=== PATIENT | female | born 1965 | race Caucasian/White ===

== ENCOUNTER 2019-09-18 17:33 | Day surgery (SDC) | payer BC ==
[2019-09-18] MEDS ORDERED: Ondansetron 4 MG/2 ML SDV IVPUSH ONE (19:15)
[2019-09-18] MEDS ORDERED: HYDROmorphone 1 MG/ML Syringe IVPUSH STA (19:15)
[2019-09-18] MEDS ORDERED: Sodium Chloride 0.9% 1,000 ML IV SCH (19:15)
[2019-09-18] MEDS: Sodium Chloride 0.9% 10 ML Syringe FLUSH PRN ×2 (19:48→21:30)
[2019-09-18] MEDS ORDERED: Diatrizoate Meglumine/Diatrizoate Sodium 37% 120 ML Bottle PO ONE (20:12)
[2019-09-18] MEDS ORDERED: Iopamidol 612 MG/ML 100 ML Bottle IVPUSH ONE (20:12)
--- NOTE | 2019-09-18 20:56 | EDM.PDOC ---
ED HPI GENERAL MEDICAL PROBLEM - General Chief Complaint: Abdominal Pain Stated Complaint: R SIDE ABDOMINAL PAIN Time Seen by Provider: 09/18/19 18:30 Source of Information: Reports: Patient, RN Notes Reviewed History Limitations: Reports: No Limitations - History of Present Illness INITIAL COMMENTS - FREE TEXT/NARRATIVE: Patient is a 53-year-old female who presents to the ED for the evaluation of right-sided abdominal pain. Patient states that she developed this abdominal pain yesterday, and this has worsened since then. She initially thought it was constipation, she states her last BM was on Tuesday that she can remember. She states that the pain is constant and does not wax and wane. She states that any sort of bump or movement she makes aggravates the pain worse. She notes that she has to lay fairly still, and not move in order for the pain to go away. She did start taking MiraLAX yesterday, as she thought this could be constipation. She notes that she used a heat pad to the area as this also helps. She states she was having some mild nausea with this. She does not know if she's had any fevers or chills, but states she does have hot and cold flashes. She also states that she is perimenopausal, so she was not sure if this was related to that. She notes that she is still able to pass gas. She denies any dysuria, urinary frequency or urgency. She states she's not had previous abdominal surgeries. She has had a tubal ligation. Her primary care provider is Emily Truong at the [facility]. She does note that she has had a colonoscopy, and this has been normal. She notes that she is not having any chest pain, and she does have some mild shortness of breath with the pain flares. 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 - Past Surgical History HEENT Surgical History: Reports: Tonsillectomy Female Surgical History: Reports: Hysterectomy, Tubal Ligation Neurological Surgical History: Reports: Other (See Below) Other Neurological Surgeries/Procedures: diskectomy Dermatological Surgical History: Reports: Other (See Below) Social & Family History - Family History Family Medical History: Noncontributory - Tobacco Use Smoking Status *Q: Never Smoker Second Hand Smoke Exposure: No - Caffeine Use Caffeine Use: Reports: Coffee, Energy Drinks - Recreational Drug Use Recreational Drug Use: No ED ROS GENERAL - Review of Systems Review Of Systems: See Below Constitutional: Denies: Fever, Chills HEENT: Reports: No Symptoms Respiratory: Reports: Shortness of Breath (with pain flares) Cardiovascular: Denies: Chest Pain Endocrine: Reports: No Symptoms GI/Abdominal: Reports: Abdominal Pain (Right sided), Nausea. Denies: Constipation, Diarrhea, Vomiting : Denies: Dysuria, Frequency, Urgency Musculoskeletal: Reports: No Symptoms Skin: Reports: No Symptoms Neurological: Reports: No Symptoms Psychiatric: Reports: No Symptoms ED EXAM, GI/ABD - Physical Exam Exam: See Below Exam Limited By: No Limitations General Appearance: Alert, WD/WN, No Apparent Distress (pt appears to be in pain.) Eyes: Bilateral: Normal Appearance Throat/Mouth: Normal Inspection, Normal Lips, Normal Teeth, Normal Gums, Normal Oropharynx, Normal Voice, No Airway Compromise Head: Atraumatic, Normocephalic Respiratory/Chest: No Respiratory Distress, Lungs Clear, Normal Breath Sounds, No Accessory Muscle Use, Chest Non-Tender Cardiovascular: Normal Peripheral Pulses, Regular Rate, Rhythm, No Murmur GI/Abdominal Exam: Normal Bowel Sounds, Soft, No Distention, No Mass, Guarding, Tender (RLQ mainly, but entire abdomen is tender). No: Rigid Extremities: Normal Inspection, Normal Capillary Refill Neurological: Alert, Oriented, Normal Cognition, No Motor/Sensory Deficits Psychiatric: Normal Affect, Normal Mood Skin Exam: Warm, Dry, Intact, Normal Color, No Rash EKG INTERPRETATION EKG Date: 09/18/19 Time: 10:11 Rhythm: NSR Rate (Beats/Min): 95 [place]: Normal P-Wave: Present QRS: Normal ST-T: Normal QT: Normal Comparison: NA - No Prior EKG EKG Interpretation Comments: Reviewed by Dr. Oro and myself. Course - Vital Signs Last Recorded V/S: Last Vital Signs Temp 97.2 F 09/18/19 17:40 Pulse 102 H 09/18/19 17:40 Resp 15 09/18/19 17:40 BP 152/98 H 09/18/19 17:40 Pulse Ox 99 09/18/19 17:40 - Orders/Labs/Meds Orders: Active Orders 24 hr Category Date Time Status Admission Status [Patient Status] [ADT] Routine ADT 09/18/19 21:51 Active EKG Documentation Completion [RC] STAT Care 09/18/19 21:59 Active Notify Provider Consults [RC] ASDIRECTED Care 09/18/19 21:49 Active Peripheral IV Care [RC] . DIRECTED Care 09/18/19 19:16 Active Consult to Physician [CONS] Urgent Cons 09/18/19 21:49 Active Abdomen Pelvis w Cont [CT] Stat Exams 09/18/19 19:16 Taken Sodium Chloride 0.9% [Normal Saline] 1,000 ml Med 09/18/19 19:15 Active IV ASDIRECTED Sodium Chloride 0.9% [Saline Flush] Med 09/18/19 19:16 Active 10 ml FLUSH ASDIRECTED PRN Peripheral IV Insertion Adult [OM.PC] Routine Oth 09/18/19 19:16 Ordered Schedule Procedure [COMM] Stat Oth 09/18/19 21:52 Ordered Medication Orders Sodium Chloride (Normal Saline) 1,000 mls @ 999 mls/hr IV ASDIRECTED MARQUES Last Admin: 09/18/19 19:49 Dose: 999 mls/hr Sodium Chloride (Saline Flush) 10 ml FLUSH ASDIRECTED PRN PRN Reason: Keep Vein Open Last Admin: 09/18/19 21:30 Dose: 10 ml Admin: 09/18/19 19:48 Dose: 10 ml Labs: Laboratory Tests 09/18/19 09/18/19 09/18/19 Range/Units 19:32 19:32 21:08 WBC 20.51 H (3.98-10.04) K/mm3 RBC 4.43 (3.98-5.22) M/mm3 Hgb 14.1 (11.2-15.7) gm/dl Hct 42.6 (34.1-44.9) % MCV 96.2 H (79.4-94.8) fl MCH 31.8 (25.6-32.2) pg MCHC 33.1 (32.2-35.5) g/dl RDW Std Deviation 44.4 (36.4-46.3) fL Plt Count 255 (182-369) K/mm3 MPV 9.1 L (9.4-12.3) fl Neutrophils % (Manual) 86 H (40-60) % Band Neutrophils % 0 (0-10) % Lymphocytes % (Manual) 8 L (20-40) % Atypical Lymphs % 0 % Monocytes % (Manual) 6 (2-10) % Eosinophils % (Manual) 0 L (0.7-5.8) % Basophils % (Manual) 0 L (0.1-1.2) Platelet Estimate Adequate RBC Morph Comment Normal Sodium 138 (136-145) mEq/L Potassium 3.7 (3.5-5.1) mEq/L Chloride 100 (98-107) mEq/L Carbon Dioxide 28 (21-32) mEq/L Anion Gap 13.7 (5-15) BUN 10 (7-18) mg/dL Creatinine 0.7 (0.55-1.02) mg/dL Est Cr Clr Drug Dosing 92.68 mL/min Estimated GFR (MDRD) > 60 (>60) mL/min BUN/Creatinine Ratio 14.3 (14-18) Glucose 107 H (74-106) mg/dL Calcium 9.0 (8.5-10.1) mg/dL Total Bilirubin 0.9 (0.2-1.0) mg/dL AST 29 (15-37) U/L ALT 49 (14-59) U/L Alkaline Phosphatase 73 (46-116) U/L Total Protein 8.0 (6.4-8.2) g/dl Albumin 3.6 (3.4-5.0) g/dl Globulin 4.4 gm/dL Albumin/Globulin Ratio 0.8 L (1-2) Urine Color Yellow (Yellow) Urine Appearance Clear (Clear) Urine pH 6.5 (5.0-8.0) Ur Specific [place] 1.020 (1.005-1.030) Urine Protein Trace H (Negative) Urine Glucose (UA) Negative (Negative) Urine Ketones Trace H (Negative) Urine Occult Blood Negative (Negative) Urine Nitrite Negative (Negative) Urine Bilirubin Negative (Negative) Urine Urobilinogen 0.2 (0.2-1.0) Ur Leukocyte Esterase Negative (Negative) Urine RBC 5-10 H (0-5) /hpf Urine WBC 0-5 (0-5) /hpf Ur Squamous Epith Cells 10-20 H (0-5) /hpf Urine Bacteria Not seen (FEW) /hpf Urine Mucus Not seen (FEW) /hpf Meds: Medications Generic Name Dose Route Start Last Admin Trade Name Freq PRN Reason Stop Dose Admin Sodium Chloride 1,000 mls @ 999 mls/hr 09/18/19 19:15 09/18/19 19:49 Normal Saline IV 999 mls/hr ASDIRECTED MARQUES Administration Sodium Chloride 10 ml 09/18/19 19:16 09/18/19 21:30 Saline Flush FLUSH 10 ml ASDIRECTED PRN Administration Keep Vein Open Discontinued Medications Generic Name Dose Route Start Last Admin Trade Name Freq PRN Reason Stop Dose Admin Bupivacaine HCl/Epinephrine Bitart Confirm 09/18/19 22:26 Marcaine 0.5%/Epinephrine 1:200,000 Administered 09/18/19 22:27 Dose 50 ml .ROUTE .STK-MED ONE Diatrizoate Meglum/Diatrizoate Sod 60 ml 09/18/19 20:12 09/18/19 21:30 Gastrografin 37% PO 09/18/19 20:13 60 ml ONETIME ONE Administration Hydromorphone HCl 1 mg 09/18/19 19:15 09/18/19 19:46 Dilaudid IVPUSH 09/18/19 19:16 1 mg ONETIME STA Administration Piperacillin Sod/Tazobactam 100 mls @ 200 mls/hr 09/18/19 21:45 09/18/19 21: 52 Sod 4.5 gm/ Sodium Chloride IV 09/18/19 22:14 200 mls/hr ONETIME ONE Administration Lactated Ringer's Confirm 09/18/19 21:50 09/18/19 22:29 Ringers, Lactated Administered 09/18/19 21:51 Not Given Dose 1,000 mls @ as directed .ROUTE .STK-MED ONE Ertapenem 1 gm/ Sodium 50 mls @ 100 mls/hr 09/18/19 22:09 09/18/19 22:29 Chloride IV 09/18/19 22:38 Not Given ONETIME ONE Iopamidol 100 ml 09/18/19 20:12 09/18/19 21:30 Isovue-300 (61%) IVPUSH 09/18/19 20:13 100 ml ONETIME ONE Administration Ondansetron HCl 4 mg 09/18/19 19:15 09/18/19 19:41 Zofran IVPUSH 09/18/19 19:16 4 mg ONETIME ONE Administration - Re-Assessments/Exams Free Text/Narrative Re-Assessment/Exam: 09/18/19 19:20 Patient presents to the ED for evaluation of abdominal pain. I did order CBC, CMP, urinalysis, abdominal pelvis CT with contrast, 1 mg IV Dilaudid, and 4 mg IV Zofran with some IV fluids for initial management. 09/18/19 20:58 Labs are done, urinalysis is still pending. CBC is increased at 20.51, with 86 % neutrophils and no bands. Which would suggest a left shift. Metabolic panel was within normal limits. 09/18/19 21:50 CT is done, and the tech did show venous scans, and stated that she does have appendicitis, however official radiology read is pending. [facility] will be providing official radiology read. I did call Dr. Glass, general surgeon on- call, he requested IV Zosyn be given to the patient, patient's last meal was yesterday, and she states that she is only been taking small sips of water for her pills throughout the day, the most amount of liquid she's had today was the contrast for the CT just done. Patient was having a little bit of pain again at re-exam, but I discussed with her the possibility of waiting until the surgeon examined her, and she is okay with this. UA is still pending. 09/18/19 21:57 V-rad demonstrate an appendix diameter of 20 mm with a large amount of surrounding inflammation, but no perforation, or abscess noted. 09/18/19 22:01 I did go ahead and order a preop chest x-ray, and an EKG. 09/18/19 22:45 As the ER was fairly busy, and the x-ray tech did not see the order for the chest x-ray, so this was not done at this time. This should not be detrimental to the health with the patient, or her care plan. I did cancel the order. Departure - Departure Time of Disposition: 21:53 Disposition: DC/Tfer to [facility] Condition: Fair Clinical Impression: Appendicitis Qualifiers: Appendicitis type: acute appendicitis Acute appendicitis type: with localized peritonitis Appendicitis gangrene presence: without gangrene Appendicitis perforation presence: without perforation Appendicitis abscess presence: without abscess Qualified Code(s): K35.30 - Acute appendicitis with localized peritonitis, without perforation or gangrene - Discharge Information - My Orders Last 24 Hours: My Active Orders 09/18/19 19:15 Sodium Chloride 0.9% [Normal Saline] 1,000 ml IV ASDIRECTED 09/18/19 19:16 Peripheral IV Care [RC] . DIRECTED Abdomen Pelvis w Cont [CT] Stat Sodium Chloride 0.9% [Saline Flush] 10 ml FLUSH ASDIRECTED PRN Peripheral IV Insertion Adult [OM.PC] Routine 09/18/19 21:49 Notify Provider Consults [RC] ASDIRECTED Consult to Physician [CONS] Urgent 09/18/19 21:51 Admission Status [Patient Status] [ADT] Routine 09/18/19 21:52 Schedule Procedure [COMM] Stat 09/18/19 21:59 EKG Documentation Completion [RC] STAT - Assessment/Plan Last 24 Hours: My Active Orders 09/18/19 19:15 Sodium Chloride 0.9% [Normal Saline] 1,000 ml IV ASDIRECTED 09/18/19 19:16 Peripheral IV Care [RC] . DIRECTED Abdomen Pelvis w Cont [CT] Stat Sodium Chloride 0.9% [Saline Flush] 10 ml FLUSH ASDIRECTED PRN Peripheral IV Insertion Adult [OM.PC] Routine 09/18/19 21:49 Notify Provider Consults [RC] ASDIRECTED Consult to Physician [CONS] Urgent 09/18/19 21:51 Admission Status [Patient Status] [ADT] Routine 09/18/19 21:52 Schedule Procedure [COMM] Stat 09/18/19 21:59 EKG Documentation Completion [RC] STAT
[2019-09-18] MEDS ORDERED: Piperacillin/Tazobactam 4.5 GM in Sodium Chloride 0.9% 100 ML IV ONE (21:45)
[2019-09-18] MEDS ORDERED: Lactated Ringers 1,000 ML ONE ×2 (21:50→22:59)
[2019-09-18] MEDS ORDERED: Ertapenem 1 GM in Sodium Chloride 0.9% 50 ML IV ONE (22:09)
--- NOTE | 2019-09-18 22:13 | PCM.HP.2 ---
H&P History of Present Illness - General Date of Service: 09/18/19 Admit Problem/Dx: Admission Diagnosis/Problem Admission Diagnosis/Problem Appendicitis Source of Information: Patient History Limitations: Reports: No Limitations - History of Present Illness Onset of Symptoms: Reports: Sudden Symptom Onset Date: 09/17/19 Duration of Symptoms: Reports: Hour(s):, Getting Worse Location: Reports: Abdomen Quality: Reports: Ache, Stabbing Severity: Severe Improves with: Reports: None Worsens with: Reports: Movement Context: Reports: Other Associated Symptoms: Reports: No Other Symptoms Other HPI/Comments: 53 yo woman presents with roughly 36 hrs of abdominal pain that began suddenly. The pain was periumbilical at first but she notes severe RLQ pain with movement. She has never had pain like this before. She denies vomiting or fever. She did not have a bowel movement today. Her WBC in the ER is 20,000, with CT scan showing inflamed appendix. 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 - Past Surgical History HEENT Surgical History: Reports: Tonsillectomy Female Surgical History: Reports: Hysterectomy, Tubal Ligation Neurological Surgical History: Reports: Other (See Below) Other Neurological Surgeries/Procedures: diskectomy Dermatological Surgical History: Reports: Other (See Below) Social & Family History - Family History Family Medical History: Noncontributory - Tobacco Use Smoking Status *Q: Never Smoker Second Hand Smoke Exposure: No - Caffeine Use Caffeine Use: Reports: Coffee, Energy Drinks - Recreational Drug Use Recreational Drug Use: No H&P Review of Systems - Review of Systems: Review Of Systems: See Below General: Reports: Malaise HEENT: Reports: No Symptoms Pulmonary: Reports: No Symptoms Cardiovascular: Reports: No Symptoms Gastrointestinal: Reports: Abdominal Pain, Anorexia Genitourinary: Reports: No Symptoms Musculoskeletal: Reports: No Symptoms Skin: Reports: No Symptoms Psychiatric: Reports: No Symptoms Neurological: Reports: No Symptoms Hematologic/Lymphatic: Reports: No Symptoms Immunologic: Reports: No Symptoms Exam - Exam Exam: See Below - Vital Signs Vital Signs: Last Vital Signs Temp 36.2 C 09/18/19 17:40 Pulse 102 H 09/18/19 17:40 Resp 15 09/18/19 17:40 BP 152/98 H 09/18/19 17:40 Pulse Ox 99 09/18/19 17:40 Weight: 90.718 kg - Exam General: Alert, Oriented, Mild Distress HEENT: Conjunctiva Clear Neck: Supple Lungs: Clear to Auscultation Cardiovascular: Regular Rate GI/Abdominal Exam: Tender (Female) Exam: Deferred Rectal (Female) Exam: Deferred Back Exam: Normal Inspection Extremities: Normal Inspection Peripheral Pulses: 2+: Radial (L), Radial (R) Skin: Warm, Dry Neurological: Normal Speech, Sensation Intact Neuro Extensive - Mental Status: Alert, Oriented x3 Psychiatric: Normal Affect (right lower quadrant tenderness without rebound, guarding, or rigidity. No palpable mass. ) - Patient Data Lab Results Last 24 hrs: Laboratory Results - last 24 hr 09/18/19 09/18/19 09/18/19 Range/Units 19:32 19:32 21:08 WBC 20.51 H (3.98-10.04) K/mm3 RBC 4.43 (3.98-5.22) M/mm3 Hgb 14.1 (11.2-15.7) gm/dl Hct 42.6 (34.1-44.9) % MCV 96.2 H (79.4-94.8) fl MCH 31.8 (25.6-32.2) pg MCHC 33.1 (32.2-35.5) g/dl RDW Std Deviation 44.4 (36.4-46.3) fL Plt Count 255 (182-369) K/mm3 MPV 9.1 L (9.4-12.3) fl Neutrophils % (Manual) 86 H (40-60) % Band Neutrophils % 0 (0-10) % Lymphocytes % (Manual) 8 L (20-40) % Atypical Lymphs % 0 % Monocytes % (Manual) 6 (2-10) % Eosinophils % (Manual) 0 L (0.7-5.8) % Basophils % (Manual) 0 L (0.1-1.2) Platelet Estimate Adequate RBC Morph Comment Normal Sodium 138 (136-145) mEq/L Potassium 3.7 (3.5-5.1) mEq/L Chloride 100 (98-107) mEq/L Carbon Dioxide 28 (21-32) mEq/L Anion Gap 13.7 (5-15) BUN 10 (7-18) mg/dL Creatinine 0.7 (0.55-1.02) mg/dL Est Cr Clr Drug Dosing 92.68 mL/min Estimated GFR (MDRD) > 60 (>60) mL/min BUN/Creatinine Ratio 14.3 (14-18) Glucose 107 H (74-106) mg/dL Calcium 9.0 (8.5-10.1) mg/dL Total Bilirubin 0.9 (0.2-1.0) mg/dL AST 29 (15-37) U/L ALT 49 (14-59) U/L Alkaline Phosphatase 73 (46-116) U/L Total Protein 8.0 (6.4-8.2) g/dl Albumin 3.6 (3.4-5.0) g/dl Globulin 4.4 gm/dL Albumin/Globulin Ratio 0.8 L (1-2) Urine Color Yellow (Yellow) Urine Appearance Clear (Clear) Urine pH 6.5 (5.0-8.0) Ur Specific [place] 1.020 (1.005-1.030) Urine Protein Trace H (Negative) Urine Glucose (UA) Negative (Negative) Urine Ketones Trace H (Negative) Urine Occult Blood Negative (Negative) Urine Nitrite Negative (Negative) Urine Bilirubin Negative (Negative) Urine Urobilinogen 0.2 (0.2-1.0) Ur Leukocyte Esterase Negative (Negative) Urine RBC 5-10 H (0-5) /hpf Urine WBC 0-5 (0-5) /hpf Ur Squamous Epith Cells 10-20 H (0-5) /hpf Urine Bacteria Not seen (FEW) /hpf Urine Mucus Not seen (FEW) /hpf Result Diagrams: 09/18/19 19:32 09/18/19 19:32 *Q Meaningful Use (ADM) - VTE Risk Assess *Q Each Risk Factor Represents 1 Point: Age 41 - 59 years Total Score 1 Point Risk Factors: 1 Each Risk Factor Represents 2 Points: Laparoscopic surgery greater than 45 minutes Total Score 2 Point Risk Factors: 2 Problem List Initiated/Reviewed/Updated: Yes Orders Last 24hrs: Active Orders 24 hr Category Date Time Status Admission Status [Patient Status] [ADT] Routine ADT 09/18/19 21:51 Active EKG Documentation Completion [RC] STAT Care 09/18/19 21:59 Active Notify Provider Consults [RC] ASDIRECTED Care 09/18/19 21:49 Active Peripheral IV Care [RC] . DIRECTED Care 09/18/19 19:16 Active Consult to Physician [CONS] Urgent Cons 09/18/19 21:49 Active Abdomen Pelvis w Cont [CT] Stat Exams 09/18/19 19:16 Taken Chest 1V Frontal [CR] Stat Exams 09/18/19 21:59 Ordered Piperacillin/Tazobactam [Piperacil-Tazobact] 4.5 gm Med 09/18/19 21:45 Active Sodium Chloride 0.9% [Normal Saline] 100 ml IV ONETIME Sodium Chloride 0.9% [Normal Saline] 1,000 ml Med 09/18/19 19:15 Active IV ASDIRECTED Sodium Chloride 0.9% [Saline Flush] Med 09/18/19 19:16 Active 10 ml FLUSH ASDIRECTED PRN Peripheral IV Insertion Adult [OM.PC] Routine Oth 09/18/19 19:16 Ordered Schedule Procedure [COMM] Stat Oth 09/18/19 21:52 Ordered Medication Orders Sodium Chloride (Normal Saline) 1,000 mls @ 999 mls/hr IV ASDIRECTED [facility] Last Admin: 09/18/19 19:49 Dose: 999 mls/hr Piperacillin Sod/Tazobactam (Sod 4.5 gm/ Sodium Chloride) 100 mls @ 200 mls/hr IV ONETIME ONE Stop: 09/18/19 22:14 Last Admin: 09/18/19 21:52 Dose: 200 mls/hr Sodium Chloride (Saline Flush) 10 ml FLUSH ASDIRECTED PRN PRN Reason: Keep Vein Open Last Admin: 09/18/19 21:30 Dose: 10 ml Admin: 09/18/19 19:48 Dose: 10 ml Assessment/Plan Comment:: Acute appendicitis, plan for laparoscopic appendectomy and anticipate discharge to home after breakfast tomorrow. - Mortality Measure Prognosis:: Good
[2019-09-18] MEDS ORDERED: Bupivacaine 0.5%/EPINEPHrine 1:200,000 50 ML MDV ONE (22:26)
--- NOTE | 2019-09-18 22:28 | PCM.PREANE ---
Preanesthetic Assessment - Anesthesia/Transfusion/Family Hx Anesthesia History: Prior Anesthesia Without Reaction Family History of Anesthesia Reaction: No Transfusion History: No Prior Transfusion(s) Intubation History: Unknown - Review of Systems General: No Symptoms, Fatigue, Chills Pulmonary: No Symptoms (ETOH: rarely) Cardiovascular: No Symptoms Gastrointestinal: No Symptoms, Constipation, Decreased Appetite Neurological: No Symptoms (History of three lower back surgeries), Numbness ( left arm C3-C7 bulging disks awaiting neck surgery) Other: Reports: None, Easy Bruising, Neck Pain - Physical Assessment NPO Status Date: 09/18/19 NPO Status Time: 21:30 (oral contrast) Vital Signs: Last Vital Signs Temp 36.2 C 09/18/19 17:40 Pulse 102 H 09/18/19 17:40 Resp 15 09/18/19 17:40 BP 152/98 H 09/18/19 17:40 Pulse Ox 99 09/18/19 17:40 Height: 1.73 m Weight: 90.718 kg ASA Class: 2E Mental Status: Alert & Oriented x3 Airway Class: Mallampati = 2 Dentition: Reports: Normal Dentition, Caries Thyro-Mental Finger Breadths: 3 Mouth Opening Finger Breadths: 3 ROM/Head Extension: Full Lungs: Clear to Auscultation, Normal Respiratory Effort Cardiovascular: Regular Rate, Regular Rhythm, No Murmurs - Lab Values: Laboratory Last Values WBC 20.51 K/mm3 (3.98-10.04) H 09/18/19 19:32 RBC 4.43 M/mm3 (3.98-5.22) 09/18/19 19:32 Hgb 14.1 gm/dl (11.2-15.7) 09/18/19 19:32 Hct 42.6 % (34.1-44.9) 09/18/19 19:32 MCV 96.2 fl (79.4-94.8) H 09/18/19 19:32 MCH 31.8 pg (25.6-32.2) 09/18/19 19:32 MCHC 33.1 g/dl (32.2-35.5) 09/18/19 19:32 RDW Std Deviation 44.4 fL (36.4-46.3) 09/18/19 19:32 Plt Count 255 K/mm3 (182-369) 09/18/19 19:32 MPV 9.1 fl (9.4-12.3) L 09/18/19 19:32 Neutrophils % (Manual) 86 % (40-60) H 09/18/19 19:32 Band Neutrophils % 0 % (0-10) 09/18/19 19:32 Lymphocytes % (Manual) 8 % (20-40) L 09/18/19 19:32 Atypical Lymphs % 0 % 09/18/19 19:32 Monocytes % (Manual) 6 % (2-10) 09/18/19 19:32 Eosinophils % (Manual) 0 % (0.7-5.8) L 09/18/19 19:32 Basophils % (Manual) 0 (0.1-1.2) L 09/18/19 19:32 Platelet Estimate Adequate 09/18/19 19:32 RBC Morph Comment Normal 09/18/19 19:32 Sodium 138 mEq/L (136-145) 09/18/19 19:32 Potassium 3.7 mEq/L (3.5-5.1) 09/18/19 19:32 Chloride 100 mEq/L (98-107) 09/18/19 19:32 Carbon Dioxide 28 mEq/L (21-32) 09/18/19 19:32 Anion Gap 13.7 (5-15) 09/18/19 19:32 BUN 10 mg/dL (7-18) 09/18/19 19:32 Creatinine 0.7 mg/dL (0.55-1.02) 09/18/19 19:32 Est Cr Clr Drug Dosing 92.68 mL/min 09/18/19 19:32 Estimated GFR (MDRD) > 60 mL/min (>60) 09/18/19 19:32 BUN/Creatinine Ratio 14.3 (14-18) 09/18/19 19:32 Glucose 107 mg/dL (74-106) H 09/18/19 19:32 Calcium 9.0 mg/dL (8.5-10.1) 09/18/19 19:32 Total Bilirubin 0.9 mg/dL (0.2-1.0) 09/18/19 19:32 AST 29 U/L (15-37) 09/18/19 19:32 ALT 49 U/L (14-59) 09/18/19 19:32 Alkaline Phosphatase 73 U/L (46-116) 09/18/19 19:32 Total Protein 8.0 g/dl (6.4-8.2) 09/18/19 19:32 Albumin 3.6 g/dl (3.4-5.0) 09/18/19 19:32 Globulin 4.4 gm/dL 09/18/19 19:32 Albumin/Globulin Ratio 0.8 (1-2) L 09/18/19 19:32 Urine Color Yellow (Yellow) 09/18/19 21:08 Urine Appearance Clear (Clear) 09/18/19 21:08 Urine pH 6.5 (5.0-8.0) 09/18/19 21:08 Ur Specific [place] 1.020 (1.005-1.030) 09/18/19 21:08 Urine Protein Trace (Negative) H 09/18/19 21:08 Urine Glucose (UA) Negative (Negative) 09/18/19 21:08 Urine Ketones Trace (Negative) H 09/18/19 21:08 Urine Occult Blood Negative (Negative) 09/18/19 21:08 Urine Nitrite Negative (Negative) 09/18/19 21:08 Urine Bilirubin Negative (Negative) 09/18/19 21:08 Urine Urobilinogen 0.2 (0.2-1.0) 09/18/19 21:08 Ur Leukocyte Esterase Negative (Negative) 09/18/19 21:08 Urine RBC 5-10 /hpf (0-5) H 09/18/19 21:08 Urine WBC 0-5 /hpf (0-5) 09/18/19 21:08 Ur Squamous Epith Cells 10-20 /hpf (0-5) H 09/18/19 21:08 Urine Bacteria Not seen /hpf (FEW) 09/18/19 21:08 Urine Mucus Not seen /hpf (FEW) 09/18/19 21:08 Above labs reviewed and noted and within acceptable ranges to proceed with scheduled procedure. 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: , Other (See Below) Other OB/BYN History: hot flashes - Past Surgical History HEENT Surgical History: Reports: Tonsillectomy Female Surgical History: Reports: Hysterectomy, Tubal Ligation Neurological Surgical History: Reports: Other (See Below) Other Neurological Surgeries/Procedures: diskectomy Dermatological Surgical History: Reports: Other (See Below) - SUBSTANCE USE Smoking Status *Q: Never Smoker Second Hand Smoke Exposure: No Recreational Drug Use History: No - HOME MEDS Home Medications: Home Meds Venlafaxine [Effexor XR] 37.5 mg PO DAILY 09/18/19 [History] buPROPion [Wellbutrin] 150 mg PO DAILY 09/18/19 [History] - CURRENT (IN HOUSE) MEDS Current Meds: Current Medications Sodium Chloride (Normal Saline) 1,000 mls @ 999 mls/hr IV ASDIRECTED MARQUES Last Admin: 09/18/19 19:49 Dose: 999 mls/hr Ertapenem 1 gm/ Sodium (Chloride) 50 mls @ 100 mls/hr IV ONETIME ONE Stop: 09/18/19 22:38 Sodium Chloride (Saline Flush) 10 ml FLUSH ASDIRECTED PRN PRN Reason: Keep Vein Open Last Admin: 09/18/19 21:30 Dose: 10 ml Discontinued Medications Diatrizoate Meglum/Diatrizoate Sod (Gastrografin 37%) 60 ml PO ONETIME ONE Stop: 09/18/19 20:13 Last Admin: 09/18/19 21:30 Dose: 60 ml Hydromorphone HCl (Dilaudid) 1 mg IVPUSH ONETIME STA Stop: 09/18/19 19:16 Last Admin: 09/18/19 19:46 Dose: 1 mg Piperacillin Sod/Tazobactam (Sod 4.5 gm/ Sodium Chloride) 100 mls @ 200 mls/hr IV ONETIME ONE Stop: 09/18/19 22:14 Last Admin: 09/18/19 21:52 Dose: 200 mls/hr Lactated Ringer's (Ringers, Lactated) Confirm Administered Dose 1,000 mls @ as directed .ROUTE .STK-MED ONE Stop: 09/18/19 21:51 Iopamidol (Isovue-300 (61%)) 100 ml IVPUSH ONETIME ONE Stop: 09/18/19 20:13 Last Admin: 09/18/19 21:30 Dose: 100 ml Ondansetron HCl (Zofran) 4 mg IVPUSH ONETIME ONE Stop: 09/18/19 19:16 Last Admin: 09/18/19 19:41 Dose: 4 mg
[2019-09-18] MEDS ORDERED: HYDROmorphone 0.5 MG/0.5 ML Syringe ONE ×2 (22:59→23:24)
[2019-09-18] MEDS ORDERED: Ketorolac 30 MG/ML SDV ONE (22:59)
[2019-09-18] MEDS ORDERED: Ondansetron 4 MG/2 ML SDV ONE (22:59)
[2019-09-18] MEDS ORDERED: Dexamethasone 4 MG/ML 5 ML MDV ONE (22:59)
[2019-09-18] MEDS ORDERED: Lidocaine 1% 6 ML ONE (22:59)
[2019-09-18] MEDS ORDERED: Succinylcholine/Normal Saline 100 MG/5 ML Syringe ONE (22:59)
[2019-09-18] MEDS ORDERED: Rocuronium 50 MG/5 ML Vial ONE (22:59)
[2019-09-18] MEDS ORDERED: Midazolam 1 MG/ML 2 ML SDV ONE (23:01)
[2019-09-18] MEDS ORDERED: Propofol 200 MG/20 ML SDV ONE (23:01)
[2019-09-18] MEDS ORDERED: fentaNYL 250 MCG/5 ML SDV ONE (23:02)
[2019-09-18] MEDS ORDERED: Phenylephrine/Normal Saline 100 MCG/ML 10 ML Syringe ONE (23:14)
[2019-09-18] MEDS ORDERED: diphenhydrAMINE 50 MG/ML SDV IVPUSH PRN (23:19)
[2019-09-18] MEDS ORDERED: Ondansetron 4 MG/2 ML SDV IVPUSH PRN (23:19)
[2019-09-18] MEDS ORDERED: fentaNYL 100 MCG/2 ML SDV IVPUSH PRN (23:19)
[2019-09-18] MEDS ORDERED: HYDROmorphone 0.5 MG/0.5 ML Syringe IVPUSH PRN (23:19)
[2019-09-18] MEDS ORDERED: ePHEDrine 50 MG/ML SDV IVPUSH PRN (23:19)
[2019-09-18] MEDS ORDERED: Neostigmine Methylsulfate 1 MG/ML 5 ML Syringe ONE (23:27)
[2019-09-18] MEDS ORDERED: Phenylephrine 1 MG in Sodium Chloride 0.9% 10 ML IV SCH (23:30)
[2019-09-18] MEDS ORDERED: oxyCODONE 5 MG Tab PO PRN (23:59)
--- NOTE | 2019-09-19 00:06 | PCM.PRNOTE ---
- Free Text/Narrative Note: Operative Report Operation: laparoscopic appendectomy Date: 09/18/2019 Attending Surgeon: Fransico Glass MD Indication for Surgery:acute appendicitis Preoperative antibiotics: 1 g ertapenem IV VTE prophylaxis: SCDs Estimated Blood Loss: 5 cc Findings: gangrenous, perforated retrocecal appendicitis with thin murky fluid in the pelvis. Detailed Report: The patient underwent general endotracheal anesthesia after being placed supine on the operating table and initial timeout. The abdomen was prepped and draped in sterile fashion. A pre-incision timeout was performed confirming the patient s identity and the operation to be performed. A Veress needle was inserted into the abdominal cavity below the left costal margin along the mid-clavicular line. The abdomen was insufflated with CO2 to 15 mm Hg. Gas was aspirated below the umbilicus with a syringe in order to ensure safe placement of a 12 mm bladed laparoscopic port. The 5mm 30 degree laparoscope was then inserted and viscera inspected. The appendix appeared severely inflamed with area of necrosis and perforation near the base. Two additional 5 mm ports were placed under direct vision with the laparoscope one along the midline superior to the pubic symphysis and one in the left lower quadrant. The laparoscope was then placed through the left lower quadrant port for optimal visualization. Careful blunt dissection was performed with laparoscopic graspers until the appendix was freed from surrounding inflammatory attachments. The appendix was retrocecal , and lateral attachments were dissected in order to expose the appendix. The distal portion of the appendix was grasped with a laparoscopic Yakelin clamp and retracted anteriorly and inferiorly. The appendix was basically transected already near its base before handling. The [place] grasper was used to create a window in the mesoappendix where the appendix was seen coming off the cecum. A 45 mm laparoscopic stapler with white cartridge was used to divide the appendix flush with the base of the cecum. An additional staple fire was used to divide the mesentery supplying the appendix. The specimen was then placed in an Endocatch bag and removed through the umbilical port. The dissection field was irrigated and inspected and appeared hemostatic. The larger infraumbilical port was closed at the level of the fascia with vicryl suture using the PMI laparoscopic suture passer. Pneumoperitoneum was then released. All skin incisions were then closed with placement of subcuticular monocryl suture and dressed with dermabond. A total of 20 cc 0.5% marcaine with epinephrine was used for local anesthesia at the incision sites. The patient tolerated the operation well, was extubated in the operating room and transferred to the PACU for routine post-anesthesia care. Fransico Glass MD General Surgery
--- NOTE | 2019-09-19 00:11 | PCM.POSTAN ---
POST ANESTHESIA ASSESSMENT - MENTAL STATUS Mental Status: Alert, Oriented - VITAL SIGNS Vital Signs: Last Vital Signs Temp 37.6 C 09/19/19 00:00 Pulse 102 H 09/18/19 0000 Resp 17 09/19/19 00:00 BP 138/90 09/19/19 00:00 Pulse Ox 97 09/19/19 00:00 - RESPIRATORY Respiratory Status: Respiratory Rate WNL, Airway Patent, O2 Saturation Stable - CARDIOVASCULAR CV Status: Pulse Rate WNL, Blood Pressure Stable - GASTROINTESTINAL GI Status: No Symptoms - POST OP HYDRATION Hydration Status: Adequate & Stable
[2019-09-19] MEDS: Acetaminophen 325 MG/10.15 ML ML PO SCH ×2 (03:18→07:46)
--- NOTE | 2019-09-19 07:27 | CT ---
CT abdomen and pelvis Technique: Multiple axial sections were obtained from above the dome of the diaphragm inferiorly through the pubic symphysis. Intravenous and oral contrast was utilized. Delayed images were also obtained from above the kidneys inferiorly through the pubic symphysis. Comparison: No prior abdominal imaging is available. Findings: Significant inflammatory change is seen around a dilated appendix. Findings are compatible with appendicitis. Visualized lung bases show nothing acute. Liver shows no focal parenchymal abnormality. Spleen appears within normal limits. Adrenal glands show no nodule. Kidneys show symmetric contrast enhancement. Delayed images show contrast excretion from both kidneys into nondilated ureters. Contrast is noted within the bladder on delayed images. Pancreas appears within normal limits. Aorta shows no aneurysm. No retroperitoneal adenopathy or mesenteric abnormalities are seen. There is free fluid within the pelvis which appears simple and may be reactive from the appendicitis. Bowel loops are slightly prominent most likely due to mild ileus. Bone window settings were reviewed which show scattered degenerative change within the spine. Impression: 1. Findings compatible with appendicitis. 2. Fluid within the pelvis most likely reactive from the appendicitis. 3. Mildly prominent bowel loops most likely representing mild ileus. Diagnostic code #5 I agree with preliminary report from ad, finalized on 09/18/19, 10:53 PM Central Time
--- NOTE | 2019-09-19 10:06 | PCM.DCSUM1 ---
Discharge Summary - Hospital Course Free Text/Narrative:: Admitted from [facility] emergency room last night with perforated appendicitis. Went to OR for laparoscopic appendectomy, completed without complication. She has done well postoperatively, tolerating a diet, ambulating and pain controlled with oral analgesia. Diagnosis: Stroke: No - Discharge Data Discharge Date: 09/19/19 Discharge Disposition: Home, Self-Care 01 Condition: Good - Referral to Home Health Primary Care Physician: Emily Gallegos NP - Patient Summary/Data Operative Procedure(s) Performed: laparoscopic appendectomy Consults: Consultations 09/18/19 21:49 Consult to Physician [CONS] Urgent Hospital Course: admitted from ERwith appendicitis and taken to OR promptly for laparoscopic appendectom. Appendix was perforated. Did well postoperatively and discharged the morning after her operation. - Patient Instructions Diet: Regular Diet as Tolerated Activity: As Tolerated, No Lifting Over 10 Pounds Showering/Bathing: March Shower Wound/Incision Care: Keep Operative Site/Wound Site Clean and Dry Notify Provider of: Fever, Increased Pain, Swelling and Redness, Drainage, Nausea and/or Vomiting - Discharge Plan *PRESCRIPTION DRUG MONITORING PROGRAM REVIEWED*: Not Applicable *COPY OF PRESCRIPTION DRUG MONITORING REPORT IN PATIENT FANY: Not Applicable Prescriptions/Med Rec: oxyCODONE 5 mg PO Q4H PRN #20 tab PRN Reason: Abdominal Pain Home Medications: Home Meds Venlafaxine [Effexor XR] 37.5 mg PO 1500 09/18/19 [History] buPROPion [Wellbutrin] 150 mg PO DAILY 09/18/19 [History] L.acidoph,Paracasei, B.lactis [Probiotic] 1 cap PO 0600 09/19/19 [History] Multivit with Calcium,Iron,Min [One Daily Women's] 2 tab PO 0600 09/19/19 [ History] Venlafaxine [Effexor] 75 mg PO 0600 09/19/19 [History] oxyCODONE 5 mg PO Q4H PRN #20 tab 09/19/19 [Rx] Oxygen Therapy Mode: Room Air Patient Handouts: Laparoscopic Appendectomy, Adult Referrals: Emily Gallegos NP [Primary Care Provider] - Fransico Glass MD [Physician] - - Discharge Summary/Plan Comment DC Time >30 min.: No Discharge Summary/Plan Comment: follow up in 2 weeks in surgery clinic. Call clinic or come to emergency room if signs of infection develop. - Patient Data Vitals - Most Recent: Last Vital Signs Temp 36.4 C 09/19/19 04:04 Pulse 97 09/19/19 04:04 Resp 16 09/19/19 04:04 BP 131/79 09/19/19 04:04 Pulse Ox 93 L 09/19/19 04:04 Weight - Most Recent: 93.168 kg I&O - Last 24 hours: Intake & Output 09/18/19 09/19/19 09/19/19 22:59 06:59 14:59 Intake Total 650 Output Total 900 Balance -250 Lab Results - Last 24 hrs: Laboratory Results - last 24 hr 09/18/19 09/18/19 09/18/19 Range/Units 19:32 19:32 21:08 WBC 20.51 H (3.98-10.04) K/mm3 RBC 4.43 (3.98-5.22) M/mm3 Hgb 14.1 (11.2-15.7) gm/dl Hct 42.6 (34.1-44.9) % MCV 96.2 H (79.4-94.8) fl MCH 31.8 (25.6-32.2) pg MCHC 33.1 (32.2-35.5) g/dl RDW Std Deviation 44.4 (36.4-46.3) fL Plt Count 255 (182-369) K/mm3 MPV 9.1 L (9.4-12.3) fl Neut % (Auto) (34.0-71.1) % Lymph % (Auto) (19.3-51.7) % [place] % (Auto) (4.7-12.5) % Eos % (Auto) (0.7-5.8) Baso % (Auto) (0.1-1.2) % Neut # (Auto) (1.56-6.13) K/mm3 Lymph # (Auto) (1.18-3.74) K/mm3 [place] # (Auto) (0.24-0.36) K/mm3 Eos # (Auto) (0.04-0.36) K/mm3 Baso # (Auto) (0.01-0.08) K/mm3 Neutrophils % (Manual) 86 H (40-60) % Band Neutrophils % 0 (0-10) % Lymphocytes % (Manual) 8 L (20-40) % Atypical Lymphs % 0 % Monocytes % (Manual) 6 (2-10) % Eosinophils % (Manual) 0 L (0.7-5.8) % Basophils % (Manual) 0 L (0.1-1.2) Manual Slide Review Platelet Estimate Adequate RBC Morph Comment Normal Sodium 138 (136-145) mEq/L Potassium 3.7 (3.5-5.1) mEq/L Chloride 100 (98-107) mEq/L Carbon Dioxide 28 (21-32) mEq/L Anion Gap 13.7 (5-15) BUN 10 (7-18) mg/dL Creatinine 0.7 (0.55-1.02) mg/dL Est Cr Clr Drug Dosing 92.68 mL/min Estimated GFR (MDRD) > 60 (>60) mL/min BUN/Creatinine Ratio 14.3 (14-18) Glucose 107 H (74-106) mg/dL Calcium 9.0 (8.5-10.1) mg/dL Total Bilirubin 0.9 (0.2-1.0) mg/dL AST 29 (15-37) U/L ALT 49 (14-59) U/L Alkaline Phosphatase 73 (46-116) U/L Total Protein 8.0 (6.4-8.2) g/dl Albumin 3.6 (3.4-5.0) g/dl Globulin 4.4 gm/dL Albumin/Globulin Ratio 0.8 L (1-2) Urine Color Yellow (Yellow) Urine Appearance Clear (Clear) Urine pH 6.5 (5.0-8.0) Ur Specific [place] 1.020 (1.005-1.030) Urine Protein Trace H (Negative) Urine Glucose (UA) Negative (Negative) Urine Ketones Trace H (Negative) Urine Occult Blood Negative (Negative) Urine Nitrite Negative (Negative) Urine Bilirubin Negative (Negative) Urine Urobilinogen 0.2 (0.2-1.0) Ur Leukocyte Esterase Negative (Negative) Urine RBC 5-10 H (0-5) /hpf Urine WBC 0-5 (0-5) /hpf Ur Squamous Epith Cells 10-20 H (0-5) /hpf Urine Bacteria Not seen (FEW) /hpf Urine Mucus Not seen (FEW) /hpf 09/19/19 09/19/19 Range/Units 07:53 07:53 WBC 18.67 H (3.98-10.04) K/mm3 RBC 3.86 L (3.98-5.22) M/mm3 Hgb 12.4 D (11.2-15.7) gm/dl Hct 37.9 (34.1-44.9) % MCV 98.2 H (79.4-94.8) fl MCH 32.1 (25.6-32.2) pg MCHC 32.7 (32.2-35.5) g/dl RDW Std Deviation 45.3 (36.4-46.3) fL Plt Count 229 (182-369) K/mm3 MPV 9.2 L (9.4-12.3) fl Neut % (Auto) 95.2 H (34.0-71.1) % Lymph % (Auto) 3.2 L (19.3-51.7) % [place] % (Auto) 1.4 L (4.7-12.5) % Eos % (Auto) 0 L (0.7-5.8) Baso % (Auto) 0.0 L (0.1-1.2) % Neut # (Auto) 17.77 H (1.56-6.13) K/mm3 Lymph # (Auto) 0.60 L (1.18-3.74) K/mm3 [place] # (Auto) 0.26 (0.24-0.36) K/mm3 Eos # (Auto) 0.00 L (0.04-0.36) K/mm3 Baso # (Auto) 0.00 L (0.01-0.08) K/mm3 Neutrophils % (Manual) (40-60) % Band Neutrophils % (0-10) % Lymphocytes % (Manual) (20-40) % Atypical Lymphs % % Monocytes % (Manual) (2-10) % Eosinophils % (Manual) (0.7-5.8) % Basophils % (Manual) (0.1-1.2) Manual Slide Review Abnormal smear Platelet Estimate RBC Morph Comment Sodium 138 (136-145) mEq/L Potassium 4.1 (3.5-5.1) mEq/L Chloride 102 (98-107) mEq/L Carbon Dioxide 27 (21-32) mEq/L Anion Gap 13.1 (5-15) BUN 9 (7-18) mg/dL Creatinine 0.8 (0.55-1.02) mg/dL Est Cr Clr Drug Dosing 81.10 mL/min Estimated GFR (MDRD) > 60 (>60) mL/min BUN/Creatinine Ratio 11.3 L (14-18) Glucose 135 H (74-106) mg/dL Calcium 8.5 (8.5-10.1) mg/dL Total Bilirubin (0.2-1.0) mg/dL AST (15-37) U/L ALT (14-59) U/L Alkaline Phosphatase (46-116) U/L Total Protein (6.4-8.2) g/dl Albumin (3.4-5.0) g/dl Globulin gm/dL Albumin/Globulin Ratio (1-2) Urine Color (Yellow) Urine Appearance (Clear) Urine pH (5.0-8.0) Ur Specific [place] (1.005-1.030) Urine Protein (Negative) Urine Glucose (UA) (Negative) Urine Ketones (Negative) Urine Occult Blood (Negative) Urine Nitrite (Negative) Urine Bilirubin (Negative) Urine Urobilinogen (0.2-1.0) Ur Leukocyte Esterase (Negative) Urine RBC (0-5) /hpf Urine WBC (0-5) /hpf Ur Squamous Epith Cells (0-5) /hpf Urine Bacteria (FEW) /hpf Urine Mucus (FEW) /hpf Med Orders - Current: Current Medications Acetaminophen (Tylenol) 975 mg PO Q8H [facility] Non-Formulary Medication (Bupropion) 150 mg PO DAILY [facility] Non-Formulary Medication (Venlafaxine) 75 mg PO 0600 [facility] Oxycodone HCl (Oxycodone) 5 mg PO Q4H PRN PRN Reason: Pain (moderate 4-6) Sodium Chloride (Saline Flush) 10 ml FLUSH ASDIRECTED PRN PRN Reason: Keep Vein Open Last Admin: 09/18/19 21:30 Dose: 10 ml Venlafaxine HCl (Effexor Xr) 37.5 mg PO 1500 [facility] Discontinued Medications Acetaminophen (Tylenol) 975 mg PO Q8H [facility] Last Admin: 09/19/19 07:46 Dose: 975 mg Bupivacaine HCl/Epinephrine Bitart (Marcaine 0.5%/Epinephrine 1:200,000) Confirm Administered Dose 50 ml .ROUTE .STK-MED ONE Stop: 09/18/19 22:27 Last Admin: 09/18/19 23:16 Dose: 20 ml Dexamethasone (Dexamethasone) Confirm Administered Dose 20 mg .ROUTE .STK-MED ONE Stop: 09/18/19 23:00 Diatrizoate Meglum/Diatrizoate Sod (Gastrografin 37%) 60 ml PO ONETIME ONE Stop: 09/18/19 20:13 Last Admin: 09/18/19 21:30 Dose: 60 ml Diphenhydramine HCl (Benadryl) 25 mg IVPUSH Q6H PRN PRN Reason: pruritis Ephedrine Sulfate (Ephedrine Sulfate) 5 mg IVPUSH ASDIRECTED PRN PRN Reason: Hypotension Fentanyl (Sublimaze) Confirm Administered Dose 250 mcg .ROUTE .STK-MED ONE Stop: 09/18/19 23:03 Fentanyl (Sublimaze) 50 mcg IVPUSH Q5M PRN PRN Reason: Pain Glycopyrrolate () Confirm Administered Dose 1 mg .ROUTE .STK-MED ONE Stop: 09/18/19 23:28 Hydromorphone HCl (Dilaudid) 1 mg IVPUSH ONETIME STA Stop: 09/18/19 19:16 Last Admin: 09/18/19 19:46 Dose: 1 mg Hydromorphone HCl (Dilaudid) Confirm Administered Dose 0.5 mg .ROUTE .STK-MED ONE Stop: 09/18/19 23:00 Hydromorphone HCl (Dilaudid) 0.5 mg IVPUSH Q15M PRN PRN Reason: Pain (severe 7-10) Hydromorphone HCl (Dilaudid) Confirm Administered Dose 0.5 mg .ROUTE .STK-MED ONE Stop: 09/18/19 23:25 Sodium Chloride (Normal Saline) 1,000 mls @ 999 mls/hr IV ASDIRECTED MARQUES Last Admin: 09/18/19 19:49 Dose: 999 mls/hr Piperacillin Sod/Tazobactam (Sod 4.5 gm/ Sodium Chloride) 100 mls @ 200 mls/hr IV ONETIME ONE Stop: 09/18/19 22:14 Last Admin: 09/18/19 21:52 Dose: 200 mls/hr Lactated Ringer's (Ringers, Lactated) Confirm Administered Dose 1,000 mls @ as directed .ROUTE .STK-MED ONE Stop: 09/18/19 21:51 Last Admin: 09/18/19 22:29 Dose: Not Given Ertapenem 1 gm/ Sodium (Chloride) 50 mls @ 100 mls/hr IV ONETIME ONE Stop: 09/18/19 22:38 Last Admin: 09/18/19 22:29 Dose: Not Given Lidocaine HCl (Xylocaine-Mpf 1%) Confirm Administered Dose 6 mls @ as directed .ROUTE .STK-MED ONE Stop: 09/18/19 23:00 Lactated Ringer's (Ringers, Lactated) Confirm Administered Dose 1,000 mls @ as directed .ROUTE .STK-MED ONE Stop: 09/18/19 23:00 Phenylephrine HCl 1 mg/ Sodium (Chloride) 10.1 mls @ 1 mls/sec IV TITRATE MARQUES; Protocol Iopamidol (Isovue-300 (61%)) 100 ml IVPUSH ONETIME ONE Stop: 09/18/19 20:13 Last Admin: 09/18/19 21:30 Dose: 100 ml Ketorolac Tromethamine (Toradol) Confirm Administered Dose 30 mg .ROUTE .STK- MED ONE Stop: 09/18/19 23:00 Midazolam HCl (Versed 1 Mg/Ml) Confirm Administered Dose 2 mg .ROUTE .STK-MED ONE Stop: 09/18/19 23:02 Neostigmine Methylsulfate (Neostigmine) Confirm Administered Dose 5 mg .ROUTE .STK-MED ONE Stop: 09/18/19 23:28 Ondansetron HCl (Zofran) 4 mg IVPUSH ONETIME ONE Stop: 09/18/19 19:16 Last Admin: 09/18/19 19:41 Dose: 4 mg Ondansetron HCl (Zofran) Confirm Administered Dose 4 mg .ROUTE .STK-MED ONE Stop: 09/18/19 23:00 Ondansetron HCl (Zofran) 4 mg IVPUSH ONETIME PRN PRN Reason: Nausea/Vomiting Phenylephrine HCl (Phenylephrine In Ns 100 Mcg/Ml) Confirm Administered Dose 1 mg .ROUTE .STK-MED ONE Stop: 09/18/19 23:15 Propofol (Diprivan 20 Ml) Confirm Administered Dose 200 mg .ROUTE .STK-MED ONE Stop: 09/18/19 23:02 Rocuronium [place] (Zemuron) Confirm Administered Dose 50 mg .ROUTE .STK-MED ONE Stop: 09/18/19 23:00 Succinylcholine Chloride (Succinylcholine In Ns Pf) Confirm Administered Dose 100 mg .ROUTE .STK-MED ONE Stop: 09/18/19 23:00
[2019-09-19] MEDS ORDERED: Venlafaxine 37.5 MG Cap.ER PO SCH (15:00)
[2019-09-19] MEDS ORDERED: Acetaminophen 325 MG Tab PO SCH (15:45)
[2019-09-20] MEDS ORDERED: Non-Formulary Medication 1 Each (Venlafaxine 75 MG) PO SCH (06:00)
[2019-09-20] MEDS ORDERED: BUPROPION 150 MG PO SCH (09:00)
== END 2019-09-19 11:35 | disposition home or self-care (01) ==
LOC: JD.ED 17:33 → JD.SDS 21:53 → JD.MS 09-19 00:50 → JD.SDS 09-19 00:50 → JD.MS 09-19 02:42 → UNDOADMOB 09-19 02:42 → JD.MS 09-19 02:42 → JD.SDS 09-19 11:35 → JD.MS 09-19 11:35 → UNDODISOB 09-19 11:35
PROVIDERS: ATTEND Surgery
DX: K35.32 Acute appendicitis with perforation, localized peritonitis, and gangrene, without abscess (principal)
CPT/HCPCS: 36415; 44970; 51798; 74177; 80048; 80053; 81001; 85007; 85025; 85027; 93005; 96361; 96365; 96375; 99285; A9270; J0330; J1100; J1170; J2001; J2250; J2370; J2405; J2543; J2704; J2710; J3010; J3490; J7030; J7040; J7120; Q9963; Q9967; 00840; 93010; J1885

== ENCOUNTER 2020-06-18 09:24 | Emergency (ER) | payer BC ==
[2020-06-18] MEDS ORDERED: Sodium Chloride 0.9% 10 ML Syringe FLUSH PRN ×2 (09:41→11:15)
[2020-06-18] MEDS ORDERED: HYDROmorphone 1 MG/ML Syringe IVPUSH ONE (09:43)
--- NOTE | 2020-06-18 09:50 | EDM.PDOC ---
ED HPI GENERAL MEDICAL PROBLEM - General Chief Complaint: Respiratory Problem Stated Complaint: RT SIDE PAIN Time Seen by Provider: 06/18/20 09:33 Source of Information: Reports: Patient History Limitations: Reports: No Limitations - History of Present Illness INITIAL COMMENTS - FREE TEXT/NARRATIVE: The patient presents with RUQ and right sided chest pain. This started yesterd ay and it has gotten worse today. She says taking a deep breath makes it worse. She has never had pain like this before. She has no fever, chills, cough, congestion, runny nose, nausea or vomiting. She has not eaten since yesterday. She still has her gallbladder and she said she has had trouble in the past. She has no history of heart disease, hypertension, hypercholesterolemia or diabetes. She quit smoking in 1991. She has no history of DVT or PE. She has no pain or swelling in her legs. Onset: Gradual Duration: Day(s): (Yesterday) Location: Reports: Chest, Abdomen Quality: Reports: Sharp Severity: Severe Improves with: Reports: Immobilization Worsens with: Reports: Breathing Associated Symptoms: Reports: Chest Pain. Denies: Cough, Fever/Chills, Headaches, Nausea/Vomiting, Shortness of Breath Right Breast Pain Score (Numeric/FACES): 10 - Related Data Allergies Allergy/AdvReac Type Severity Reaction Status Date / Time No Known Allergies Allergy Verified 06/18/20 09:35 Home Meds: Home Meds Venlafaxine [Effexor XR] 0 mg PO 1500 09/18/19 [History] buPROPion [Wellbutrin] 150 mg PO DAILY 09/18/19 [History] L.acidoph,Paracasei, B.lactis [Probiotic] 1 cap PO 0600 09/19/19 [History] Multivit with Calcium,Iron,Min [One Daily Women's] 2 tab PO 0600 09/19/19 [History] Venlafaxine [Effexor] 0 mg PO 0600 09/19/19 [History] oxyCODONE 5 mg PO Q4H PRN #20 tab 09/19/19 [Rx] Hydrocodone/Acetaminophen [Hydrocodone-Acetamin 5-325 mg] 1 - 2 each PO Q6HR PRN #10 tablet 06/18/20 [Rx] Naproxen [Naprosyn] 500 mg PO Q12HR PRN #30 tab 06/18/20 [Rx] 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: , 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 Musculoskeletal Surgical History: Reports: Other (See Below) Other Musculoskeletal Surgeries/Procedures:: Back surgery in ,, 2014. Dissectomy and laminectomy. Cyst removal to left side of neck 2008 Social & Family History - Family History Family Medical History: Noncontributory - Caffeine Use Caffeine Use: Reports: Coffee ED ROS GENERAL - Review of Systems Review Of Systems: See Below Constitutional: Reports: No Symptoms HEENT: Reports: No Symptoms Respiratory: Denies: Shortness of Breath, Cough Cardiovascular: Reports: Chest Pain Endocrine: Reports: No Symptoms GI/Abdominal: Reports: Abdominal Pain. Denies: Nausea, Vomiting : Reports: No Symptoms Musculoskeletal: Reports: No Symptoms ED EXAM, GENERAL - Physical Exam Exam: See Below Exam Limited By: No Limitations General Appearance: Alert, No Apparent Distress Ears: Normal External Exam Nose: Normal Inspection Head: Atraumatic, Normocephalic Neck: Normal Inspection Respiratory/Chest: No Respiratory Distress, Lungs Clear, Normal Breath Sounds Cardiovascular: Regular Rate, Rhythm, No Edema, No Murmur GI/Abdominal: Soft, No Organomegaly, No Mass, Tender (Moderate tenderness to the RUQ) Extremities: Normal Inspection Course - Vital Signs Last Recorded V/S: Last Vital Signs Temp 97.3 F 06/18/20 09:30 Pulse 90 06/18/20 09:30 Resp 18 06/18/20 09:30 BP 153/96 H 06/18/20 09:30 Pulse Ox 98 06/18/20 09:30 - Orders/Labs/Meds Orders: Active Orders 24 hr Category Date Time Status Cardiac Monitoring [RC] . DIRECTED Care 06/18/20 09:42 Active EKG Documentation Completion [RC] STAT Care 06/18/20 09:43 Active Peripheral IV Care [RC] . DIRECTED Care 06/18/20 09:43 Active Sodium Chloride 0.9% [Normal Saline] 45 ml Med 06/18/20 11:15 Active IV ASDIRECTED Sodium Chloride 0.9% [Saline Flush] Med 06/18/20 09:41 Active 10 ml FLUSH ASDIRECTED PRN Sodium Chloride 0.9% [Saline Flush] Med 06/18/20 11:15 Active 10 ml FLUSH ONETIME PRN Peripheral IV Insertion Adult [OM.PC] Stat Oth 06/18/20 09:41 Ordered Medication Orders Sodium Chloride (Normal Saline) 45 mls @ 40 mls/hr IV ASDIRECTED MARQUES Last Admin: 06/18/20 11:29 Dose: 40 mls/hr Documented by: ALYSON Sodium Chloride (Saline Flush) 10 ml FLUSH ASDIRECTED PRN PRN Reason: Keep Vein Open Last Admin: 06/18/20 10:22 Dose: 10 ml Documented by: HAI Sodium Chloride (Saline Flush) 10 ml FLUSH ONETIME PRN PRN Reason: Keep Vein Open Last Admin: 06/18/20 11:28 Dose: 10 ml Documented by: ALYSON Labs: Laboratory Tests 06/18/20 06/18/20 06/18/20 Range/Units 10:30 10:30 10:30 WBC 6.40 (3.98-10.04) K/mm3 RBC 4.42 (3.98-5.22) M/mm3 Hgb 13.6 (11.2-15.7) gm/dl Hct 42.1 (34.1-44.9) % MCV 95.2 H D (79.4-94.8) fl MCH 30.8 (25.6-32.2) pg MCHC 32.3 (32.2-35.5) g/dl RDW Std Deviation 43.9 (36.4-46.3) fL Plt Count 271 (182-369) K/mm3 MPV 8.8 L (9.4-12.3) fl Neut % (Auto) 61.3 (34.0-71.1) % Lymph % (Auto) 27.7 (19.3-51.7) % [place] % (Auto) 7.8 (4.7-12.5) % Eos % (Auto) 2.7 (0.7-5.8) Baso % (Auto) 0.3 (0.1-1.2) % Neut # (Auto) 3.93 (1.56-6.13) K/mm3 Lymph # (Auto) 1.77 (1.18-3.74) K/mm3 [place] # (Auto) 0.50 H (0.24-0.36) K/mm3 Eos # (Auto) 0.17 (0.04-0.36) K/mm3 Baso # (Auto) 0.02 (0.01-0.08) K/mm3 D-Dimer, Quantitative 0.65 H (0.19-0.50) mg/L Sodium 138 (136-145) mEq/L Potassium 3.8 (3.5-5.1) mEq/L Chloride 100 (98-107) mEq/L Carbon Dioxide 29 (21-32) mEq/L Anion Gap 12.8 (5-15) BUN 13 (7-18) mg/dL Creatinine 0.8 (0.55-1.02) mg/dL Est Cr Clr Drug Dosing 80.15 mL/min Estimated GFR (MDRD) > 60 (>60) mL/min BUN/Creatinine Ratio 16.3 (14-18) Glucose 88 (74-106) mg/dL Calcium 9.4 (8.5-10.1) mg/dL Total Bilirubin 0.4 (0.2-1.0) mg/dL AST 29 (15-37) U/L ALT 44 (14-59) U/L Alkaline Phosphatase 87 (46-116) U/L Troponin I < 0.017 (0.00-0.056) ng/mL Total Protein 8.5 H (6.4-8.2) g/dl Albumin 4.1 (3.4-5.0) g/dl Globulin 4.4 gm/dL Albumin/Globulin Ratio 0.9 L (1-2) Lipase 66 L (73-393) U/L Meds: Medications Generic Name Dose Route Start Last Admin Trade Name Freq PRN Reason Stop Dose Admin Sodium Chloride 45 mls @ 40 mls/hr 06/18/20 11:15 06/18/20 11:29 Normal Saline IV 40 mls/hr ASDIRECTED MARQUES Administration Sodium Chloride 10 ml 06/18/20 09:41 06/18/20 10:22 Saline Flush FLUSH 10 ml ASDIRECTED PRN Administration Keep Vein Open Sodium Chloride 10 ml 06/18/20 11:15 06/18/20 11:28 Saline Flush FLUSH 10 ml ONETIME PRN Administration Keep Vein Open Discontinued Medications Generic Name Dose Route Start Last Admin Trade Name Min PRN Reason Stop Dose Admin Hydromorphone HCl 1 mg 06/18/20 09:43 06/18/20 10:21 Dilaudid IVPUSH 06/18/20 09:44 1 mg ONETIME ONE Administration Iopamidol 100 ml 06/18/20 11:15 06/18/20 11:28 Isovue-370 (76%) IVPUSH 06/18/20 11:16 100 ml ONETIME ONE Administration - Re-Assessments/Exams Free Text/Narrative Re-Assessment/Exam: 06/18/20 09:50 I ordered an IV saline lock, EKG, CXR, labs and an US of her RUQ. I also ordered dilaudid 1mg IV. 06/18/20 11:16 Her EKG shows a NSR with no acute changes. Her CXR looks good. Her CBC and CMP look good. Her troponin is negative. Her D-dimer was elevated at 0.65. I have ordered a CT angio of her chest. 06/18/20 12:[address] angio did not show any PE or any reason for the pain. I feel she has pleurisy. I will get her on some naprosyn and something more for pain. Departure - Departure Time of Disposition: 12:35 Disposition: Home, Self-Care 01 Condition: Good Clinical Impression: Pleurisy, Atypical chest pain - Discharge Information *PRESCRIPTION DRUG MONITORING PROGRAM REVIEWED*: Not Applicable *COPY OF PRESCRIPTION DRUG MONITORING REPORT IN PATIENT FANY: Not Applicable Prescriptions: Hydrocodone/Acetaminophen [Hydrocodone-Acetamin 5-325 mg] 1 - 2 each PO Q6HR PRN #10 tablet PRN Reason: Pain Naproxen [Naprosyn] 500 mg PO Q12HR PRN #30 tab PRN Reason: Pain Referrals: Emily Gallegos NP [Primary Care Provider] - Forms: ED Department Discharge, ED Return to Work/School Form Additional Instructions: Take naprosyn every 12 hours as needed for pain. If that does not help, try the hydrocodone. Please return if you are worse. Sepsis Event Note (ED) - Evaluation Sepsis Screening Result: No Definite Risk - Focused Exam Vital Signs: Vital Signs Temp Pulse Resp BP Pulse Ox 06/18/20 09:30 97.3 F 90 18 153/96 H 98 - My Orders Last 24 Hours: My Active Orders 06/18/20 09:41 Sodium Chloride 0.9% [Saline Flush] 10 ml FLUSH ASDIRECTED PRN Peripheral IV Insertion Adult [OM.PC] Stat 06/18/20 09:42 Cardiac Monitoring [RC] . DIRECTED 06/18/20 09:43 EKG Documentation Completion [RC] STAT Peripheral IV Care [RC] . DIRECTED 06/18/20 11:15 Sodium Chloride 0.9% [Normal Saline] 45 ml IV ASDIRECTED Sodium Chloride 0.9% [Saline Flush] 10 ml FLUSH ONETIME PRN - Assessment/Plan Last 24 Hours: My Active Orders 06/18/20 09:41 Sodium Chloride 0.9% [Saline Flush] 10 ml FLUSH ASDIRECTED PRN Peripheral IV Insertion Adult [OM.PC] Stat 06/18/20 09:42 Cardiac Monitoring [RC] . DIRECTED 06/18/20 09:43 EKG Documentation Completion [RC] STAT Peripheral IV Care [RC] . DIRECTED 06/18/20 11:15 Sodium Chloride 0.9% [Normal Saline] 45 ml IV ASDIRECTED Sodium Chloride 0.9% [Saline Flush] 10 ml FLUSH ONETIME PRN
--- NOTE | 2020-06-18 10:39 | CR ---
Chest: 2 views of the chest were obtained. Comparison: No prior chest x-ray. Heart size and mediastinum are normal. Prior cervical spine surgery is noted. Slightly low lung volumes are noted presumably due to poor inspiratory effort. No definite acute parenchymal change is seen. Impression: 1. Findings as noted above. 2. Nothing acute is suspected. Diagnostic code #2 This report was dictated in MDT
[2020-06-18] MEDS ORDERED: Iopamidol 755 Mg/ML 100 ML Bottle IVPUSH ONE (11:15)
[2020-06-18] MEDS ORDERED: Sodium Chloride 0.9% 45 ML IV SCH (11:15)
--- NOTE | 2020-06-18 11:55 | US ---
Limited abdominal ultrasound: Multiple real-time images of the upper right abdomen were obtained. Technologist's note: Patient unable to take in deep breaths due to pain, suboptimal ultrasound windows, making exam limited Findings: Liver shows no focal abnormality. Possible mild fatty infiltration is present. Gallbladder contains no shadowing gallstones. No gallbladder wall thickening or biliary duct dilatation is appreciated. Right kidney shows no hydronephrosis or mass. Right kidney has a length of 10.3 cm. Proximal aorta is seen and appears normal in size. Pancreas is obscured from bowel gas. Inferior vena cava is patent. Main portal vein shows normal hepatopedal flow. Impression: 1. Possible fatty infiltration within the liver. 2. No acute abnormality is appreciated on this somewhat limited right upper quadrant abdominal ultrasound. Diagnostic code #2 This report was dictated in MDT
--- NOTE | 2020-06-18 12:06 | CT ---
CT chest Technique: Multiple axial sections through the chest were obtained. Intravenous contrast was utilized. Study performed as a pulmonary angiogram protocol. Findings: Pulmonary arteries are well opacified. No filling defects are seen to indicate pulmonary embolism. Aorta shows no dissection. Ascending aorta is ectatic with AP dimension 3.8 cm. Visualized upper abdominal structures show nothing acute. No pericardial thickening is seen. Mediastinum and hilar region show no adenopathy or mass. Prior cervical spine surgery is noted. Lungs are clear with no acute parenchymal change. No pleural effusions are noted. No pneumothorax is seen. Bone window settings were reviewed which shows no acute osseous finding. Impression: 1. Ectatic ascending aorta. 2. No findings of pulmonary embolism. 3. Nothing acute is appreciated on CT study of the chest. Diagnostic code #2 This report was dictated in MDT
== END 2020-06-18 12:47 | disposition home or self-care (01) ==
LOC: JD.ED 09:24
DX: R09.1 Pleurisy (principal); Z90.49 Acquired absence of other specified parts of digestive tract; Z90.710 Acquired absence of both cervix and uterus; Z98.51 Tubal ligation status; Z98.890 Other specified postprocedural states; Z79.899 Other long term (current) drug therapy
CPT/HCPCS: 36415; 71046; 71275; 76705; 80053; 83690; 84484; 85025; 85379; 93005; 96374; 99285; J1170; J7050; Q9967; 93010; 99284

== ENCOUNTER 2021-04-27 23:25 | Emergency (ER) | payer BC ==
[2021-04-28] MEDS ORDERED: Sodium Chloride 0.9% 10 ML Syringe FLUSH PRN (00:04)
[2021-04-28] MEDS ORDERED: Ondansetron 4 MG/2 ML SDV IVPUSH ONE (00:04)
[2021-04-28] MEDS ORDERED: Ketorolac 30 MG/ML SDV IVPUSH ONE (00:06)
[2021-04-28] MEDS ORDERED: HYDROmorphone 1 MG/ML Syringe IVPUSH ONE (00:06)
[2021-04-28] MEDS ORDERED: Sodium Chloride 0.9% 1,000 ML IV SCH (00:15)
--- NOTE | 2021-04-28 00:36 | EDM.PDOC ---
ED HPI GENERAL MEDICAL PROBLEM - General Chief Complaint: General Stated Complaint: abdominal pain Time Seen by Provider: 04/27/21 23:34 Source of Information: Reports: Patient History Limitations: Reports: No Limitations - History of Present Illness INITIAL COMMENTS - FREE TEXT/NARRATIVE: The patient presents with left flank pain. This started today. She has nausea with it. The pain does not radiate anywhere. She has no fever. She will cough on occasion and that makes it worse. She has no chest pain. She has no abdominal pain. She has no history of kidney stones. She has no dysuria or hematuria. Onset: Gradual Duration: Hour(s): Location: Reports: Back Quality: Reports: Sharp Severity: Severe Improves with: Reports: Immobilization Worsens with: Reports: Movement Context: Denies: Trauma Associated Symptoms: Reports: Nausea/Vomiting. 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) Other Treatments COMMERCIAL MAINTENANCE TECHNICIAN: rolaids Left Flank Pain Score (Numeric/FACES): 10 - Related Data Allergies Allergy/AdvReac Type Severity Reaction Status Date / Time No Known Allergies Allergy Verified 06/18/20 09:35 Home Meds: Home Meds Venlafaxine [Effexor XR] 75 mg PO 1500 09/18/19 [History] buPROPion [Wellbutrin] 150 mg PO DAILY 09/18/19 [History] Multivit with Calcium,Iron,Min [One Daily Women's] 2 tab PO 0600 09/19/19 [History] Venlafaxine [Effexor] 150 mg PO 0600 09/19/19 [History] Cyclobenzaprine [Flexeril] 10 mg PO TID PRN #20 tab 04/28/21 [Rx] Past Medical History HEENT History: Reports: Impaired Vision Other HEENT History: wears reading glasses. 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 Musculoskeletal Surgical History: Reports: Other (See Below) Other Musculoskeletal Surgeries/Procedures:: Back surgery in ,, 2014. Dissectomy and laminectomy. Cyst removal to left side of neck 2008 Dermatological Surgical History: Reports: Other (See Below) Social & Family History - Family History Family Medical History: No Pertinent Family History - Tobacco Use Tobacco Use Status *Q: Former Tobacco User Years of Tobacco use: 8 Packs/Tins Daily: 0.3 Used Tobacco, but Quit: Yes Month/Year Tobacco Last Used: 11/1990 Second Hand Smoke Exposure: No - Caffeine Use Caffeine Use: Reports: Coffee, Energy Drinks - Alcohol Use Days Per Week of Alcohol Use: 2 Number of Drinks Per Day: 1 Total Drinks Per Week: 2 - Recreational Drug Use Recreational Drug Use: Yes Drug Use in Last 12 Months: Yes Recreational Drug Type: Reports: Marijuana/Hashish ED ROS GENERAL - Review of Systems Review Of Systems: See Below Constitutional: Reports: No Symptoms HEENT: Reports: No Symptoms Respiratory: Reports: No Symptoms Cardiovascular: Reports: No Symptoms Endocrine: Reports: No Symptoms GI/Abdominal: Reports: Nausea. Denies: Abdominal Pain, Diarrhea, Vomiting : Reports: No Symptoms Musculoskeletal: Reports: Back Pain (left flank) ED EXAM, GENERAL - Physical Exam Exam: See Below Exam Limited By: No Limitations General Appearance: Alert, No Apparent Distress Ears: Normal External Exam Nose: Normal Inspection Head: Atraumatic, Normocephalic Neck: Normal Inspection Respiratory/Chest: No Respiratory Distress, Lungs Clear, Normal Breath Sounds Cardiovascular: Regular Rate, Rhythm, No Edema, No Murmur GI/Abdominal: Soft, Non-Tender, No Organomegaly, No Mass Back Exam: CVA Tenderness (L) Extremities: Normal Inspection Neurological: Alert, Oriented, No Motor/Sensory Deficits Course - Vital Signs Last Recorded V/S: Last Vital Signs Temp 97.2 F 04/27/21 23:39 Pulse 91 04/27/21 23:39 Resp 18 04/27/21 23:39 BP 157/100 H 04/27/21 23:39 Pulse Ox 100 04/27/21 23:39 - Orders/Labs/Meds Orders: Active Orders 24 hr Category Date Time Status Peripheral IV Care [RC] . DIRECTED Care 04/28/21 00:05 Active Abdomen Pelvis wo Cont [CT] Stat Exams 04/28/21 00:04 Taken UA W/MICROSCOPIC [URIN] Stat Lab 04/28/21 02:15 Results Sodium Chloride 0.9% [Normal Saline] 1,000 ml Med 04/28/21 00:15 Active IV ASDIRECTED Sodium Chloride 0.9% [Saline Flush] Med 04/28/21 00:04 Active 10 ml FLUSH ASDIRECTED PRN ED Antiemetic Medication Reflex [OM.PC] Stat Oth 04/28/21 00:05 Ordered Peripheral IV Insertion Adult [OM.PC] Stat Oth 04/28/21 00:04 Ordered Medication Orders Sodium Chloride (Normal Saline) 1,000 mls @ 125 mls/hr IV ASDIRECTED MARQUES Last Admin: 04/28/21 00:31 Dose: 125 mls/hr Documented by: JORGE ALBERTO Sodium Chloride (Sodium Chloride 0.9% 10 Ml Syringe) 10 ml FLUSH ASDIRECTED PRN PRN Reason: Keep Vein Open Last Admin: 04/28/21 00:32 Dose: 10 ml Documented by: JORGE ALBERTO Labs: Laboratory Tests 04/28/21 04/28/21 04/28/21 Range/Units 00:29 00:29 02:15 WBC 10.10 H (3.98-10.04) K/mm3 RBC 4.07 (3.98-5.22) M/mm3 Hgb 12.9 (11.2-15.7) gm/dl Hct 38.9 (34.1-44.9) % MCV 95.6 H (79.4-94.8) fl MCH 31.7 (25.6-32.2) pg MCHC 33.2 (32.2-35.5) g/dl RDW Std Deviation 43.2 (36.4-46.3) fL Plt Count 246 (182-369) K/mm3 MPV 8.7 L (9.4-12.3) fl Neut % (Auto) 63.2 (34.0-71.1) % Lymph % (Auto) 27.6 (19.3-51.7) % [place] % (Auto) 7.9 (4.7-12.5) % Eos % (Auto) 0.9 (0.7-5.8) Baso % (Auto) 0.2 (0.1-1.2) % Neut # (Auto) 6.38 H (1.56-6.13) K/mm3 Lymph # (Auto) 2.79 (1.18-3.74) K/mm3 [place] # (Auto) 0.80 H (0.24-0.36) K/mm3 Eos # (Auto) 0.09 (0.04-0.36) K/mm3 Baso # (Auto) 0.02 (0.01-0.08) K/mm3 Manual Slide Review Normal smear Sodium 137 (136-145) mEq/L Potassium 3.6 (3.5-5.1) mEq/L Chloride 100 (98-107) mEq/L Carbon Dioxide 27 (21-32) mEq/L Anion Gap 13.6 (5-15) BUN 14 (7-18) mg/dL Creatinine 0.9 (0.55-1.02) mg/dL Est Cr Clr Drug Dosing 70.41 mL/min Estimated GFR (MDRD) > 60 (>60) mL/min BUN/Creatinine Ratio 15.6 (14-18) Glucose 88 (70-99) mg/dL Calcium 9.0 (8.5-10.1) mg/dL Total Bilirubin 0.3 (0.2-1.0) mg/dL AST 22 (15-37) U/L ALT 32 (14-59) U/L Alkaline Phosphatase 80 (46-116) U/L Total Protein 7.9 (6.4-8.2) g/dl Albumin 3.8 (3.4-5.0) g/dl Globulin 4.1 gm/dL Albumin/Globulin Ratio 0.9 L (1-2) Lipase 159 (73-393) U/L Urine Color Yellow (Yellow) Urine Appearance Clear (Clear) Urine pH 6.0 (5.0-8.0) Ur Specific [place] 1.020 (1.005-1.030) Urine Protein Negative (Negative) Urine Glucose (UA) Negative (Negative) Urine Ketones Negative (Negative) Urine Occult Blood Negative (Negative) Urine Nitrite Negative (Negative) Urine Bilirubin Negative (Negative) Urine Urobilinogen 0.2 (0.2-1.0) Ur Leukocyte Esterase Negative (Negative) Meds: Medications Generic Name Dose Route Start Last Admin Trade Name Min PRN Reason Stop Dose Admin Sodium Chloride 1,000 mls @ 125 mls/hr 04/28/21 00:15 04/28/21 00:31 Normal Saline IV 125 mls/hr ASDIRECTED MARQUES Administration Sodium Chloride 10 ml 04/28/21 00:04 04/28/21 00:32 Sodium Chloride 0.9% 10 Ml Syringe FLUSH 10 ml ASDIRECTED PRN Administration Keep Vein Open Discontinued Medications Generic Name Dose Route Start Last Admin Trade Name Freq PRN Reason Stop Dose Admin Hydromorphone HCl 1 mg 04/28/21 00:06 04/28/21 00:31 Hydromorphone 1 Mg/Ml Syringe IVPUSH 04/28/21 00:07 1 mg ONETIME ONE Administration Ketorolac Tromethamine 30 mg 04/28/21 00:06 04/28/21 00:32 Ketorolac 30 Mg/Ml Sdv IVPUSH 04/28/21 00:07 30 mg ONETIME ONE Administration Ondansetron HCl 4 mg 04/28/21 00:04 04/28/21 00:33 Ondansetron 4 Mg/2 Ml Sdv IVPUSH 04/28/21 00:05 4 mg ONETIME ONE Administration - Re-Assessments/Exams Free Text/Narrative Re-Assessment/Exam: 04/28/21 00:35 I ordered an IV NS at 125mL/hr, zofran 4mg IV, dilaudid 1mg IV, toradol 30mg IV, labs, UA and a CT of her abdomen and pelvis without contrast to look for a kidney stone. 04/28/21 02:38 Her WBC was slightly elevated at 10.10. Her CMP looks good. Her lipase is normal. Her CT shows no definite acute change is noted. I am waiting on her UA. 04/28/21 02:41 Her UA shows no UTI. I feel this is from her low back. I will get her some muscle relaxers for at home. Departure - Departure Time of Disposition: 02:50 Disposition: Home, Self-Care 01 Condition: Good Clinical Impression: Low back pain Qualifiers: Chronicity: acute Back pain laterality: left Sciatica presence: without sciatica Qualified Code(s): M54.5 - Low back pain - Discharge Information *PRESCRIPTION DRUG MONITORING PROGRAM REVIEWED*: Not Applicable *COPY OF PRESCRIPTION DRUG MONITORING REPORT IN PATIENT FANY: Not Applicable Prescriptions: Cyclobenzaprine [Flexeril] 10 mg PO TID PRN #20 tab PRN Reason: Pain Referrals: PCP,None [Primary Care Provider] - Saniya Evangelista MD [Physician] - 1 Week Forms: ED Department Discharge Additional Instructions: Take the flexeril as needed for pain. Take an antiinflammatory such as motrin or aleve. Follow up with your provider or Dr Alfred within a week. Please return if you are worse. Sepsis Event Note (ED) - Evaluation Sepsis Screening Result: No Definite Risk - Focused Exam Vital Signs: Vital Signs Temp Pulse Resp BP Pulse Ox 04/27/21 23:39 97.2 F 91 18 157/100 H 100 - My Orders Last 24 Hours: My Active Orders 04/28/21 00:04 Abdomen Pelvis wo Cont [CT] Stat Sodium Chloride 0.9% [Saline Flush] 10 ml FLUSH ASDIRECTED PRN Peripheral IV Insertion Adult [OM.PC] Stat 04/28/21 00:05 Peripheral IV Care [RC] . DIRECTED ED Antiemetic Medication Reflex [OM.PC] Stat 04/28/21 00:15 Sodium Chloride 0.9% [Normal Saline] 1,000 ml IV ASDIRECTED 04/28/21 02:15 UA W/MICROSCOPIC [URIN] Stat - Assessment/Plan Last 24 Hours: My Active Orders 04/28/21 00:04 Abdomen Pelvis wo Cont [CT] Stat Sodium Chloride 0.9% [Saline Flush] 10 ml FLUSH ASDIRECTED PRN Peripheral IV Insertion Adult [OM.PC] Stat 04/28/21 00:05 Peripheral IV Care [RC] . DIRECTED ED Antiemetic Medication Reflex [OM.PC] Stat 04/28/21 00:15 Sodium Chloride 0.9% [Normal Saline] 1,000 ml IV ASDIRECTED 04/28/21 02:15 UA W/MICROSCOPIC [URIN] Stat
--- NOTE | 2021-04-28 10:50 | CT ---
CT abdomen and pelvis Technique: Multiple axial sections were obtained from slightly below the top of the liver inferiorly through the pubic symphysis. Intravenous and oral contrast were not utilized. Study was performed as a ureteral stone protocol. Reconstructed coronal and sagittal images were obtained. Comparison: Prior CT abdomen and pelvis study of 09/18/19. Findings: Visualized lung bases show minimal atelectasis. Noncontrast appearance of the visualized liver and spleen shows no discrete abnormality. Gallbladder contains no calcified gallstones. Adrenal glands show no nodule. No abnormal calcifications or soft tissue abnormality is appreciated within the noncontrast kidneys. No ureteral dilatation or ureteral stone is seen. No abnormality is appreciated within the visualized pancreas. Abdominal aorta shows mild atherosclerosis with no aneurysm. No retroperitoneal adenopathy or mesenteric abnormalities are seen. No pelvic mass or adenopathy is seen. Appendix is not visualized compatible with prior appendectomy. Bone window settings were reviewed which show scattered degenerative change throughout the thoracic and lumbar spine which appear fairly stable from prior study. Impression: 1. Findings as noted above. 2. Nothing acute is seen on noncontrast CT exam of the abdomen and pelvis. Diagnostic code #2 I agree with preliminary report from ad, finalized on 04/28/21, 2:13 AM CDT, code 1
== END 2021-04-28 02:57 | disposition home or self-care (01) ==
LOC: JD.ED 23:25
DX: M54.5 Low back pain (principal); Z87.891 Personal history of nicotine dependence
CPT/HCPCS: 36415; 74176; 80053; 81001; 83690; 85025; 96374; 96375; 99284; J1170; J1885; J2405; J7030